=== PATIENT | male | born 1980 | race Caucasian/White ===

== ENCOUNTER 2016-06-02 22:52 | Emergency (ER) | payer MEDICAID ==
[2015-09-14 11:15] VITALS: BMI 31.4
[~2016-06-02 22:52] MED LIST: APAP/BUTALBITAL1 TAB PO; CLONAZEPAM2 MG/TAB PO; COREG12.5 MG PO; NEURONTIN 300300 MG PO; NEXIUM40 MG PO; PRINIVIL20 MG PO; ULTRAM50 MG PO
== END 2016-06-03 01:10 | disposition left against medical advice (07) ==
LOC: D.ER 22:52
DX: R09.89 Other specified symptoms and signs involving the circulatory and respiratory systems (principal)

== ENCOUNTER 2017-03-07 17:47 | Emergency (ER) | payer MEDICAID ==
[2015-09-14 11:15] VITALS: BMI 31.4
== END 2017-03-07 21:07 | disposition home or self-care (01) ==
LOC: D.ER 17:47
DX: I10 Essential (primary) hypertension (principal); G43.909 Migraine, unspecified, not intractable, without status migrainosus; K21.9 Gastro-esophageal reflux disease without esophagitis; F17.200 Nicotine dependence, unspecified, uncomplicated

== ENCOUNTER 2018-08-13 19:37 | Observation (INO) | payer MEDICAID ==
[~2018-08-13] VITALS: Ht 193 cm; Wt 120.2 kg
[2018-08-13] VITALS (7 sets, daily range): BP systolic 102–136; BP diastolic 66–82
[2018-08-13] MEDS ORDERED: ZANTAC300 MG PO (19:43)
--- NOTE | 2018-08-13 20:00 | NUR ---
POISON CONTROL CONTACTED. RECOMMENDED PT BE MONITORED IN ICU FOR 24 HOURS PRIOR TO PLACEMENT
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
[2018-08-13 20:10] LABS: BASOPHILS 0.2 % (0-2); EOSINOPHILS 1.5 % (0-7); HEMATOCRIT 42.1 % (42.0-54.0); HEMOGLOBIN 14.6 g/dL (13.5-17.5); IMMATURE GRANULOCYTES 0.2 % (0-5); LYMPHOCYTES 23.1 % (15-50); MCH 30.7 pg (26.0-34.0); MCHC 34.7 g/dL (31.0-37.0); MCV 88.4 fL (80.0-100.0); MEAN PLATELET VOLUME 10.3 fL (7.4-10.4); PLATELET COUNT 277 10x3/uL (130-400); RBC 4.76 10x6/uL (4.20-6.10); RDW 13.3 % (11.5-14.5); WBC 9.3 10x3/uL (4.8-10.8)
--- NOTE | 2018-08-13 20:30 | NUR ---
IN ROOM FOR SUICIDE RISK ASSESSMENT. PATIENT UNABLE TO ANSWER QUESTION DUE TO INTOXICATION. INFORMED PATIENTS NURSE ASSESSMENT MUST WAIT UNTIL PATIENT IS SOBER AND CAN ANSWER QUESTIONS.
[2018-08-13 20:38] LABS: ALBUMIN 3.6 g/dL (3.4-5.0); ALKALINE PHOSPHATASE 102 U/L (46-116); ALT (SGPT) 38 U/L (10-68); BILIRUBIN - TOTAL 0.12 mg/dL (0.2-1.3); CALC OSMOLALITY 279 mosm/kg (275-300); CALCIUM 8.7 mg/dL (8.5-10.1); CHLORIDE - SERUM 105 mmol/L (98-107); CREATININE - SERUM 0.8 mg/dL (0.6-1.3); GLUCOSE 92 mg/dL (74-106); MAGNESIUM - SERUM 2.1 mg/dL (1.8-2.4); POTASSIUM - SERUM 4.1 mmol/L (3.5-5.1); PROTEIN - SERUM 7.5 g/dL (6.4-8.2); SODIUM 141 mmol/L (136-145); UREA NITROGEN 10 mg/dL (7-18); eGFR NON AFRICAN AMERICAN > 90 mL/min (90-120)
[2018-08-13 20:43] LABS: UDS - AMPHET NEGATIVE QUAL (NEGATIVE); UDS - BARB NEGATIVE QUAL (NEGATIVE); UDS - BENZO NEGATIVE QUAL (NEGATIVE); UDS - COCAINE NEGATIVE QUAL (NEGATIVE); UDS - OPIATE NEGATIVE QUAL (NEGATIVE); UDS - PCP NEGATIVE QUAL (NEGATIVE); UDS - THC POSITIVE QUAL (NEGATIVE)
[2018-08-13 20:47] LABS: APPEARANCE CLEAR (CLEAR); BILIRUBIN NEGATIVE (NEGATIVE); COLOR STRAW (YELLOW); GLUCOSE NEGATIVE (NEGATIVE); KETONE NEGATIVE (NEGATIVE); NITRITE NEGATIVE (NEGATIVE); PROTEIN NEGATIVE (NEGATIVE); UROBILINOGEN NORMAL (NORMAL)
--- NOTE | 2018-08-13 22:13 | NUR ---
ATTEMPTED TO ASSESS PT AGAIN AND HE IS VERY LETHARGIC AND SLURRING HIS WORDS. PT IS BEING MONITORED BY ED STAFF. PER ATTENDING PHYSICIAN PT IS UNABLE TO ANSWER ASSESSMENT QUESTIONS COMPLETELY DUE TO HIS MEDICAL CONDITION. PT SHOWS NO SIGNS OF HARMING SELF AT THIS TIME. ATTENDING PHYSICIAN STATED THAT PT NEEDS TO GO TO ICU FOR MEDICAL MONITORING. WILL CONTINUE TO ATTEMPT TO ASSESS. DR. MIRELES NOTIFIED OF INABILITY TO ASSESS AND AGREES WITH ATTENDING THAT PT CAN GO TO ICU FOR MEDICAL MANAGEMENT. NO ORDERS AT THIS TIME UNTIL ABLE TO ASSESS.
--- NOTE | 2018-08-13 22:32 | NUR ---
PT MOVED TO SECURE ROOM 20 FOR CLOSER MONITORING AND 15 MIN CHECKS BEING DOCUMENTED. PT PLACED IN PAPER SCRUBS AND ALL NON-ESSENTIAL EQUIPMENT REMOVED FROM ROOM.
--- NOTE | 2018-08-13 23:11 | NUR ---
IWONA (MOTHER) [phone] ALEKSANDRA (BROTHER) [phone]
--- NOTE | 2018-08-14 01:39 | NUR ---
DR MIRELES NOTIFIED AND 1:1 SITTER OBSERVATION ORDERED, SITTER AT BEDSIDE, NOTIFIED CHARGE NURSE AND ATTENDING IN REGARDS TO ASSESSMENT FINDINGS, RESOURCES GIVEN TO PT AND SAFETY PLAN INITIATED.
--- NOTE | 2018-08-14 01:41 | NUR ---
PT AWOKE AND VOMITED IN THE FLOOR. PRN ZOFRAN ADMINISTERED IV. NO FURTHER NEEDS VOICED AT PRESENT
--- NOTE | 2018-08-14 02:44 | NUR ---
PT CARE TAKEN OVER BY THIS NURSE. LAYING IN BED. AAOX4. SLURS WORDS. C/O HEADACHE. BILATERLA EYES SWOLLEN. RT HAND 18G IV PULLED OUT. LEFT HAND 20G INFUSING MD ORDERED MEDS. SITTER AT BEDSIDE. SAFETY MEASURES IN PLACE. CBIR.
--- NOTE | 2018-08-14 02:49 | NUR ---
PT RECIEVED TO ICU FRON ER VIA STRETCHER. MONITOR EQUIP ESTABLISHED. SITTER AT BEDSIDE FOR SUICIDE PRECAUTIONS
[2018-08-14 03:00] VITALS: BP 157/93
[2018-08-14 03:40] VITALS: BP 157/93; Ht 193 cm; Wt 120.2 kg
[2018-08-14 05:39] LABS: BASOPHILS 0.2 % (0-2); HEMATOCRIT 44.8 % (42.0-54.0); HEMOGLOBIN 15.5 g/dL (13.5-17.5); IMMATURE GRANULOCYTES 0.2 % (0-5); LYMPHOCYTES 18.1 % (15-50); MCH 30.9 pg (26.0-34.0); MCHC 34.6 g/dL (31.0-37.0); MCV 89.4 fL (80.0-100.0); MEAN PLATELET VOLUME 10.4 fL (7.4-10.4); MONOCYTES 2.6 % (2-11); NEUTROPHILS 77.9 % (40-80); PLATELET COUNT 267 10x3/uL (130-400); RBC 5.01 10x6/uL (4.20-6.10); RDW 13.6 % (11.5-14.5); WBC 10.8 10x3/uL (4.8-10.8)
[2018-08-14 06:33] LABS: CALC OSMOLALITY 274 mosm/kg (275-300); CALCIUM 8.8 mg/dL (8.5-10.1); CARBON DIOXIDE 27.1 mmol/L (21.0-32.0); CHLORIDE - SERUM 109 mmol/L (98-107); CREATININE - SERUM 0.9 mg/dL (0.6-1.3); GLUCOSE 130 mg/dL (74-106); MAGNESIUM - SERUM 2.1 mg/dL (1.8-2.4); PHOSPHOROUS 2.5 mg/dL (2.5-4.9); SODIUM 137 mmol/L (136-145); UREA NITROGEN 9 mg/dL (7-18); eGFR NON AFRICAN AMERICAN > 90 mL/min (90-120)
[2018-08-14 06:38] LABS: POTASSIUM - SERUM 4.8 mmol/L (3.5-5.1)
[2018-08-14 07:00] VITALS: BP 132/78
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
[2018-08-14 11:00] VITALS: BP 113/58
--- NOTE | 2018-08-14 14:09 | MORECARE ---
CASE MANAGEMENT DISCHARGE SUMMARY PATIENT: SANTIAGO GUTIERREZ UNIT: [id number] ADM DATE: 08/13/18 AGE: 37 : [birth year] SEX: M ROOM/BED: D.2305 AUTHOR: DENISHA OLIVEROS PHYSICIAN: REFERRING PHYSICIAN: CELESTE SANCHEZ DO DATE OF SERVICE: 08/14/18 Discharge Plan Patient Name: SANTIAGO GUTIERREZ [facility] [facility] 1980 Planned Disposition: Psych facility Anticipated Discharge Date: Discharge Date: Expected LOS: Initial Reviewer: [email or web address] Initial Review Date: 08/14/2018 Generated: 08/14/18 3:09 pm Comments DCP- Discharge Planning Updated by [email or web address]: Alberta Roca on 08/14/18 1:[address] CM awaiting psychiatric evaluation prior to finding placement at a facility. CM will continue to follow and assist as needed with discharge planning / needs. Patient Name: SANTIAGO GUTIERREZ Page [phone] at 1409 All edits/amendments must be made on the electronic document DICTATION DATE: 08/14/181407 PROVIDER NETWORK MANAGER: ROGELIO 08/14/18 1408 RPT#: [id number] DC DATE: STATUS: ADM IN [facility] [address] [place] [address] END OF REPORT
[2018-08-14 15:00] VITALS: BP 128/66
--- NOTE | 2018-08-14 15:35 | NUR ---
DR. MIRELES AT BEDSIDE, UPDATE GIVEN,
--- NOTE | 2018-08-14 15:41 | MORECARE ---
CASE MANAGEMENT DISCHARGE SUMMARY PATIENT: SANTIAGO GUTIERREZ UNIT: [id number] ADM DATE: 08/13/18 AGE: 37 : [birth year] SEX: M ROOM/BED: D.2305 AUTHOR: DENISHA OLIVEROS PHYSICIAN: REFERRING PHYSICIAN: CELESTE SANCHEZ DO DATE OF SERVICE: 08/14/18 Discharge Plan Patient Name: SANTIAGO GUTIERREZ [facility] [facility] 1980 Planned Disposition: Psych facility Anticipated Discharge Date: Discharge Date: Expected LOS: Initial Reviewer: [email or web address] Initial Review Date: 08/14/2018 Generated: 08/14/18 4:41 pm Comments DCP- Discharge Planning Updated by [email or web address]: Alberta Roca on 08/14/18 1:[address] CM awaiting psychiatric evaluation prior to finding placement at a facility. CM will continue to follow and assist as needed with discharge planning / needs. External Providers External Provider: [facility] Next Contact Date: Service Request Date: Service Type: Resolution: Reviewer: Comments: Last DP export: 08/14/18 1:09 p Patient Name: SANTIAGO GUTIERREZ Page [phone] at 1541 All edits/amendments must be made on the electronic document DICTATION DATE: 08/14/18 1541 OTR FLATBED DRIVER: ROGELIO 08/14/18 1541 RPT#: [id number] DC DATE: STATUS: ADM IN [facility] [address] [place] [address] END OF REPORT
--- NOTE | 2018-08-15 14:10 | MORECARE ---
CASE MANAGEMENT DISCHARGE SUMMARY PATIENT: SANTIAGO GUTIERREZ UNIT: [id number] ADM DATE: 08/13/18 AGE: 37 : [birth year] SEX: M ROOM/BED: D.2305 AUTHOR: DENISHA LOIVEROS PHYSICIAN: REFERRING PHYSICIAN: CELESTE SANCHEZ DO DATE OF SERVICE: 08/15/18 Discharge Plan Patient Name: SANTIAGO GUTIERREZ [facility] [facility] 1980 Planned Disposition: Psych facility Anticipated Discharge Date: Discharge Date: 08/14/2018 Expected LOS: Initial Reviewer: [email or web address] Initial Review Date: 08/14/2018 Generated: 08/15/18 3:10 pm Comments DCP- Discharge Planning Updated by [email or web address]: Alberta Roca on 08/14/18 1:[address] CM awaiting psychiatric evaluation prior to finding placement at a facility. CM will continue to follow and assist as needed with discharge planning / needs. Last DP export: 08/14/18 2:41 p Patient Name: SANTIAGO GUTIERREZ Page [phone] at 1410 All edits/amendments must be made on the electronic document DICTATION DATE: 08/15/181409 SOLAR SALES MANAGER: ROGELIO 08/15/181409 RPT#: [id number] DC DATE:08/14/18 STATUS: DIS IN [facility] [address] [place] [address] END OF REPORT
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
== END 2018-08-14 19:20 ==
LOC: D.ER 19:37 → D.ICU 21:03 → OBSVTIME 21:03 → D.ICU 21:03
PROVIDERS: Family Medicine; ADMIT Family Medicine; ATTEND Family Medicine
DX: T42.6X2A Poisoning by other antiepileptic and sedative-hypnotic drugs, intentional self-harm, initial encounter (principal); K59.00 Constipation, unspecified; I10 Essential (primary) hypertension; R45.851 Suicidal ideations; F17.200 Nicotine dependence, unspecified, uncomplicated; K29.70 Gastritis, unspecified, without bleeding; K21.9 Gastro-esophageal reflux disease without esophagitis; F10.10 Alcohol abuse, uncomplicated

== ENCOUNTER 2018-08-31 15:11 | Observation (INO) | payer MEDICAID ==
[~2018-08-31] VITALS: Ht 193 cm; Wt 119.2 kg
[2018-08-31] VITALS (7 sets, daily range): BP systolic 111–149; BP diastolic 55–97; Ht 193 cm; Wt 119.2 kg
[~2018-08-31 15:11] MED LIST changes: +ZANTAC300 MG PO
[2018-08-31 15:29] LABS: APPEARANCE CLEAR (CLEAR); BILIRUBIN NEGATIVE (NEGATIVE); COLOR STRAW (YELLOW); GLUCOSE NEGATIVE (NEGATIVE); KETONE NEGATIVE (NEGATIVE); NITRITE NEGATIVE (NEGATIVE); PROTEIN NEGATIVE (NEGATIVE); UROBILINOGEN NORMAL (NORMAL)
[2018-08-31 15:35] LABS: UDS - AMPHET NEGATIVE QUAL (NEGATIVE); UDS - BARB NEGATIVE QUAL (NEGATIVE); UDS - BENZO POSITIVE QUAL (NEGATIVE); UDS - COCAINE POSITIVE QUAL (NEGATIVE); UDS - OPIATE NEGATIVE QUAL (NEGATIVE); UDS - PCP NEGATIVE QUAL (NEGATIVE); UDS - THC POSITIVE QUAL (NEGATIVE)
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
[2018-08-31 15:41] LABS: BASOPHILS 0.1 % (0-2); EOSINOPHILS 1.2 % (0-7); HEMATOCRIT 43.6 % (42.0-54.0); HEMOGLOBIN 15.3 g/dL (13.5-17.5); IMMATURE GRANULOCYTES 0.4 % (0-5); LYMPHOCYTES 28.7 % (15-50); MCHC 35.1 g/dL (31.0-37.0); MCV 88.3 fL (80.0-100.0); MEAN PLATELET VOLUME 11.4 fL (7.4-10.4); MONOCYTES 6.3 % (2-11); NEUTROPHILS 63.3 % (40-80); PLATELET COUNT 223 10x3/uL (130-400); RBC 4.94 10x6/uL (4.20-6.10); RDW 14.1 % (11.5-14.5); WBC 8.4 10x3/uL (4.8-10.8)
--- NOTE | 2018-08-31 16:15 | NUR ---
PATIENT TAKEN TO CT VIA STRETCHER PER TECH.
[2018-08-31 16:33] LABS: ALBUMIN 3.7 g/dL (3.4-5.0); ALKALINE PHOSPHATASE 93 U/L (46-116); ALT (SGPT) 24 U/L (10-68); BILIRUBIN - TOTAL 0.45 mg/dL (0.2-1.3); CALC OSMOLALITY 282 mosm/kg (275-300); CALCIUM 8.6 mg/dL (8.5-10.1); CHLORIDE - SERUM 107 mmol/L (98-107); CREATININE - SERUM 0.8 mg/dL (0.6-1.3); GLUCOSE 102 mg/dL (74-106); MAGNESIUM - SERUM 2.2 mg/dL (1.8-2.4); POTASSIUM - SERUM 3.3 mmol/L (3.5-5.1); SODIUM 143 mmol/L (136-145); UREA NITROGEN 8 mg/dL (7-18); eGFR NON AFRICAN AMERICAN > 90 mL/min (90-120)
--- NOTE | 2018-08-31 16:50 | NUR ---
PT BACK FROM CT, PATIENT BEING CLOSELY MONITORED BY STAFF. ALERT TO VERBAL STIMULI,
--- NOTE | 2018-08-31 17:30 | NUR ---
C-COLLAR REMOVED PER MD.
--- NOTE | 2018-08-31 18:35 | NUR ---
WAITING FOR ROOM ASSIGNMENT, PATIENT RESTING QUIETLY AT THIS TIME. EASY TO AROUSE, RESPONDS TO VERBAL STIMULI, VITAL SIGNS STABLE, NS INFUSING PER ORDER.
--- NOTE | 2018-08-31 19:31 | NUR ---
REQUESTED A PSYCH-CONSULT
--- NOTE | 2018-08-31 20:01 | NUR ---
ATTEMPTED TO CALL REPORT, NURSE WILL CALL ME BACK. PT RESTING QUIETLY EASILY AROUSED, VITAL SIGNS STABLE. PATIENT FOLLOWS DIRECTIONS AND IS RESPONDING APPROPRIATELY AT THIS TIME.
--- NOTE | 2018-08-31 20:35 | NUR ---
ATTEMPTED TO CALL REPORT, NO ANSWER IN UNIT.
--- NOTE | 2018-08-31 21:00 | NUR ---
PATIENT ARRIVED ON UNIT VIA STRETCHER FROM ER. SELF TRANSFERRED FROM STRETCHER TO BED WITH MINIMAL ASSISTANCE. PATIENT WAKES TO SPEECH BUT FALLS BACK ASLEEP QUICKLY. ANSWERS MOST QUESTIONS APPROPRIATELY. INITIAL ASSESSMENT COMPLETED BY THIS RN. PSYCH NURSE AT BEDSIDE FOR SUICIDE RISK SCREENING, SEE FLOWSHEETS FOR MORE INFO. PT HR SINUS FEDERICO RATE BETWEEN 45-52
--- NOTE | 2018-08-31 21:59 | NUR ---
DR MIRELES NOTIFIED AND ONE ON ONE SITTER OBSERVATION ORDERED. SITTER AT BEDSIDE. NOTIFIED CHARGE NURSE AND ATTENDING IN REGARDS TO ASSESSMENT FINDINGS. RESOURCES GIVEN TO PATIENT AND SAFETY PLAN INITIATED. ALL HAZARDOUS ITEMS REMOVED FROM PATIENT ROOM FOR SAFETY. SITTER AT BEDSIDE. CONTINUE TO MONITOR FOR SAFETY.
--- NOTE | 2018-08-31 23:15 | NUR ---
REASSESSMENT COMPLETED SEE FLOWSHEET
--- NOTE | 2018-08-31 23:36 | NUR ---
RESTING IN BED WITH EYES CLOSED. ONE ON ONE SITTER AT BEDSIDE. NO SIGNS OF DISTRESS. CONTINUE TO MONITOR FOR SAFETY
[2018-09-01 01:25] VITALS: BP 120/97
--- NOTE | 2018-09-01 03:15 | NUR ---
REASSESSMENT COMPLETED SEE FLOWSHEET
[2018-09-01 03:30] VITALS: BP 120/97
--- NOTE | 2018-09-01 03:33 | NUR ---
RESTING IN BED WITH EYES CLOSED. NO SIGNS OF DISTRESS. CALL LIGHT IN REACH.
[2018-09-01 04:26] LABS: BASOPHILS 0.1 % (0-2); EOSINOPHILS 3.2 % (0-7); HEMATOCRIT 44.4 % (42.0-54.0); HEMOGLOBIN 15.3 g/dL (13.5-17.5); IMMATURE GRANULOCYTES 0.3 % (0-5); LYMPHOCYTES 34.2 % (15-50); MCH 30.5 pg (26.0-34.0); MCHC 34.5 g/dL (31.0-37.0); MCV 88.4 fL (80.0-100.0); MEAN PLATELET VOLUME 10.3 fL (7.4-10.4); MONOCYTES 7.9 % (2-11); NEUTROPHILS 54.3 % (40-80); PLATELET COUNT 187 10x3/uL (130-400); RBC 5.02 10x6/uL (4.20-6.10); RDW 14.3 % (11.5-14.5)
--- NOTE | 2018-09-01 04:46 | NUR ---
UP IN BED EATING A SANDWICH TRAY. IV INFUSING. TV ON. CALL LIGHT IN REACH. NO OTHER NEEDS VOICED AT THIS TIME.
[2018-09-01 05:07] LABS: ALBUMIN 3.4 g/dL (3.4-5.0); ALKALINE PHOSPHATASE 90 U/L (46-116); ALT (SGPT) 24 U/L (10-68); BILIRUBIN - TOTAL 0.71 mg/dL (0.2-1.3); CALC OSMOLALITY 284 mosm/kg (275-300); CALCIUM 8.7 mg/dL (8.5-10.1); CARBON DIOXIDE 26.5 mmol/L (21.0-32.0); CHLORIDE - SERUM 109 mmol/L (98-107); CREATININE - SERUM 0.8 mg/dL (0.6-1.3); GLUCOSE 104 mg/dL (74-106); MAGNESIUM - SERUM 2.2 mg/dL (1.8-2.4); POTASSIUM - SERUM 3.7 mmol/L (3.5-5.1); PROTEIN - SERUM 6.6 g/dL (6.4-8.2); SODIUM 144 mmol/L (136-145); UREA NITROGEN 8 mg/dL (7-18); eGFR NON AFRICAN AMERICAN > 90 mL/min (90-120)
[2018-09-01 05:37] VITALS: BP 120/97
--- NOTE | 2018-09-01 06:31 | NUR ---
RESTING IN BED WITH EYES OPEN. MHT AT BEDSIDE FOR ONE ON ONE. DENIES NEEDS AT THIS TIME.
[2018-09-01 07:00] VITALS: BP 142/84
--- NOTE | 2018-09-01 07:25 | NUR ---
REPORT RECIEVED, SHIFT ASSESSMENT COMPLETE, PT IS ALERT AND ORIENTED, DENIES ANY SUICIDAL THOUGHTS, ON RA WITH 97% O2 SAT, ALL PPP, VSS, CALL LIGHT IN REACH
--- NOTE | 2018-09-01 09:30 | NUR ---
LG BM AT THIS TIME, COMPLETE BATH AND LINEN CHANGE
[2018-09-01 11:00] VITALS: BP 135/65
--- NOTE | 2018-09-01 11:21 | NUR ---
REASSESSMENT COMPLETE, NO CHANGES NOTED, PT AWAKE AT THIS TIME, DENIES ANY NEEDS, VSS, CALL LIGHT IN REACH, SITTER AT BEDSIDE
--- NOTE | 2018-09-01 14:15 | NUR ---
DR. CASTRO AT BEDSIDE, D\C ORDERS RECIEVED
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
== END 2018-09-01 15:12 | disposition home or self-care (01) ==
LOC: D.ER 15:11 → D.ICU 15:33 → OBSVTIME 15:33 → D.ICU 09-01 15:12
PROVIDERS: Family Medicine; ADMIT Family Medicine; ATTEND Family Medicine
DX: T43.211A Poisoning by selective serotonin and norepinephrine reuptake inhibitors, accidental (unintentional), initial encounter (principal); F13.10 Sedative, hypnotic or anxiolytic abuse, uncomplicated; F14.10 Cocaine abuse, uncomplicated; F12.10 Cannabis abuse, uncomplicated; F17.200 Nicotine dependence, unspecified, uncomplicated; R53.83 Other fatigue; V89.2XXA Person injured in unspecified motor-vehicle accident, traffic, initial encounter

== ENCOUNTER 2018-09-25 16:02 | Emergency (ER) | payer MEDICAID ==
[~2018-09-25] VITALS: Ht 193 cm; Wt 127.3 kg
[2018-09-25 16:10] VITALS: Ht 193 cm; Wt 127.3 kg
[2018-09-25] MEDS ORDERED: KLONOPIN1 MG PO (16:11)
[2018-09-25] MEDS ORDERED: PAXIL20 MG PO (16:11)
[2018-09-25] MEDS ORDERED: ABILIFY10 MG PO (16:11)
[2018-09-25 16:31] LABS: BASOPHILS 0.1 % (0-2); HEMATOCRIT 44.2 % (42.0-54.0); HEMOGLOBIN 15.9 g/dL (13.5-17.5); IMMATURE GRANULOCYTES 0.1 % (0-5); LYMPHOCYTES 26.5 % (15-50); MCH 30.9 pg (26.0-34.0); MEAN PLATELET VOLUME 10.1 fL (7.4-10.4); MONOCYTES 5.5 % (2-11); NEUTROPHILS 66.8 % (40-80); RBC 5.14 10x6/uL (4.20-6.10); RDW 13.5 % (11.5-14.5); WBC 8.7 10x3/uL (4.8-10.8)
[2018-09-25 16:35] LABS: PLATELET COUNT 246 10x3/uL (130-400)
[2018-09-25 16:47] LABS: ALBUMIN 3.8 g/dL (3.4-5.0); ALKALINE PHOSPHATASE 103 U/L (46-116); ALT (SGPT) 22 U/L (10-68); CALC OSMOLALITY 276 mosm/kg (275-300); CALCIUM 8.9 mg/dL (8.5-10.1); CARBON DIOXIDE 25.2 mmol/L (21.0-32.0); CHLORIDE - SERUM 105 mmol/L (98-107); CREATININE - SERUM 0.8 mg/dL (0.6-1.3); GLUCOSE 97 mg/dL (74-106); MAGNESIUM - SERUM 2.1 mg/dL (1.8-2.4); POTASSIUM - SERUM 3.8 mmol/L (3.5-5.1); PROTEIN - SERUM 7.5 g/dL (6.4-8.2); SODIUM 139 mmol/L (136-145); UREA NITROGEN 9 mg/dL (7-18); eGFR NON AFRICAN AMERICAN > 90 mL/min (90-120)
[2018-09-25 17:04] LABS: APPEARANCE CLEAR (CLEAR); BILIRUBIN NEGATIVE (NEGATIVE); COLOR STRAW (YELLOW); GLUCOSE NEGATIVE (NEGATIVE); KETONE NEGATIVE (NEGATIVE); NITRITE NEGATIVE (NEGATIVE); PROTEIN NEGATIVE (NEGATIVE); SPECIFIC GRAVITY 1.025 (1.005-1.020); UROBILINOGEN NORMAL (NORMAL)
[2018-09-25 17:14] LABS: UDS - AMPHET POSITIVE QUAL (NEGATIVE); UDS - BARB NEGATIVE QUAL (NEGATIVE); UDS - BENZO POSITIVE QUAL (NEGATIVE); UDS - COCAINE NEGATIVE QUAL (NEGATIVE); UDS - OPIATE NEGATIVE QUAL (NEGATIVE); UDS - PCP NEGATIVE QUAL (NEGATIVE); UDS - THC POSITIVE QUAL (NEGATIVE)
--- NOTE | 2018-09-25 17:35 | NUR ---
DR. MIRELES NOTIFIED AND REVIEWED PT'S BEHAVIOR AND ASSESSMENT RESULTS. PT IS A LOW RISK PER DR. MIRELES. DR. MIRELES STATED TO GIVE RESOURCES TO PT AT TIME OF DISCHARGE. NO FURTHER ORDERS AT THIS TIME. RESOUCRES REVIEWED WITH PATIENT AND HE VERBALIZIED UNDERSTANDING.
[2018-09-26 00:04] VITALS: BP 126/81
== END 2018-09-26 00:05 ==
LOC: D.ER 16:02
PROVIDERS: Family Medicine
DX: F32.9 Major depressive disorder, single episode, unspecified (principal); F31.9 Bipolar disorder, unspecified; R45.850 Homicidal ideations; R45.851 Suicidal ideations